=== PATIENT | female | born 1945 | race Caucasian/White ===

== ENCOUNTER 2016-12-10 02:16 | Emergency (ER) | payer MEDICAID ==
--- NOTE | ~2016-12-10 | ER ---
PATIENT'S NAME: DAVIAN JACQUES [facility] AGE: 71 Y [address] ROOM: [place] [address] LOCATION: [facility] ADMIT DATE: 12/10/2016 ER/Outpatient Report DISCHARGE DATE: 12/10/2016 FAMILY PHYSICIAN: PHYSICIAN, NO ATTENDING PHYSICIAN: Shea Wills Time of Arrival: 0216 hours. Time of Evaluation: 0229 hours. IDENTIFICATION: A 71-year-old female. CHIEF COMPLAINT: Abdominal pain. HISTORY OF PRESENT ILLNESS: The patient has had abdominal pain for 3 weeks, left lower quadrant cramping abdominal pain, intermittent in nature, improved with peppermints. Today, she has had this off and on. No diarrhea. She has occasional constipation. Last bowel movement was Wednesday, normal after prune juice. No blood. She has never had a colonoscopy. She had a T-max today of 99.5. She has had some nausea, no vomiting, no dysuria. She is incontinent of urine, but that is not new. She has had 9 children. Normal vaginal delivery. Currently, she is having no pain at all. It is 0216 hours in the morning and she has had this pain for 3 weeks. When I asked her what has changed or what is different today, she said really nothing. Apparently, her children talked to her into going to the doctor, so she thought she would come in here. She has been followed by the outpatient wound center and Dr. Solorzano for treatment evaluation of her right diabetic foot ulcer and she has had amputation of the right great and second toes per Dr. Solorzano, September 03, 2016, and had a wound VAC placed in September. PAST MEDICAL HISTORY: ALLERGIES: OLD RECORDS REFLECTED ALLERGIES OF CODEINE, SULFA, ALTACE, NUCYNTA, PENICILLIN, AND METFORMIN. CURRENT MEDICATIONS: 1. Amlodipine. 2. Aspirin. 3. Atorvastatin. 4. Humalog. 5. Florastor. 6. Tylenol. PATIENT'S NAME: DAVIAN JACQUES [facility] AGE: 71 Y [address] ROOM: [place] [address] LOCATION: ED ADMIT DATE: 12/10/2016 ER/Outpatient Report DISCHARGE DATE: 12/10/2016 FAMILY PHYSICIAN: PHYSICIAN, NO ATTENDING PHYSICIAN: Shea Wills 7. Benadryl. 8. Lantus. MEDICAL PROBLEMS: Diabetes, insulin requiring; morbid obesity; chronic mobility; coronary artery disease, status post previous stent; basal cell carcinoma requiring skin graft; hypertension; dyslipidemia; recurrent urinary tract infections; osteoarthritis; gastroesophageal reflux disease; venous insufficiency. PRIOR SURGERIES: Amputation of toes on the right foot, cholecystectomy, basal cell cancer excision, cardiac catheterization with stenting. FAMILY HISTORY: Mother, father, sister, and brother with heart disease. SOCIAL HISTORY: The patient is , lives in [place]. Tobacco use, denies. Alcohol use, denies. Drug use, denies. ROS: All systems reviewed are negative other than what is noted in the HPI. PHYSICAL EXAMINATION: VITAL SIGNS: Height 5 feet 6 inches, weight 101.1 kg, blood pressure 152/65, pulse 95, respirations 16, temperature 100.3, and saturations 94%. GENERAL: A 71-year-old female, in no acute distress. HEENT: Unremarkable. LUNGS: Clear to auscultation. HEART: Regular rate and rhythm. ABDOMEN: Soft, nondistended, and nontender. SKIN: [place], warm, and dry. NEURO: No focal deficit. EXTREMITIES: Cam boot and wound VAC to her right foot that was not removed. LABORATORY DATA: UA 10-20 white cells, negative red cells, 5-10 epithelial cells, few bacteria. Sodium 140, potassium 4.1, chloride 107, CO2 22, BUN 16, creatinine 0.9. Blood sugar 261. Liver enzymes are normal. Amylase 14, lipase 82, hemoglobin 12.1, hematocrit 38.9, platelets 239, white count 17.4 with 86% neutrophils. The patient is afebrile here. She is pain-free. She is sleeping comfortably. IMPRESSION: 1. Urinary tract infection. 2. Left lower quadrant pain. PATIENT'S NAME: DAVIAN JACQUES [facility] AGE: 71 Y [address] ROOM: [place], [place] [address] LOCATION: [facility] ADMIT DATE: 12/10/2016 ER/Outpatient Report DISCHARGE DATE: 12/10/2016 FAMILY PHYSICIAN: PHYSICIAN, NO ATTENDING PHYSICIAN: Shea Wills PLAN: When I asked the patient her allergies, she said that she could tolerate Cipro, that she has had it before. I prescribed Cipro 500 mg b.i.d. for 7 days. Rest and fluids and follow up with Dr. Solorzano as scheduled later today. Follow up with primary care physician in 1-2 days. She will need to be obtaining care from a new primary care physician. The patient understands and agrees, and all questions have been answered. After the patient left, some old records reflected that possibly she is allergic to Cipro. She has had Levaquin as recently as August. I will contact the patient to verify her allergies at [phone]. MD FIDEL CHRISTIANSON/herve /[id number] d: 12/10/1654 t: 12/12/16 0645, OUTPATIENT REPORT
[~2016-12-10 02:16] MED LIST: ASPIRIN325 MG PO; BENADRYL25 MG PO; CIPRO500 MG PO; DAKINS 0.25% (473 ML TOP; FLORASTOR250 MG PO; HUMALOG MI100 UNIT/5; HUMALOG100 UNIT/3 SUB-Q; KEFLEX500 MG; KEFLEX500 MG PO; LANTUS (IN100 UNIT/M SUB-Q; LIPITOR80 MG PO; NORVASC5 MG PO; ONE DAILY COMP1 EACH; OXYGEN M-15; TYLENOL325 MG PO; VITAMIN E400 UNI2 PO
[2016-12-10 02:59] LABS: BASOPHIL # 0.1 K/uL (0.0-0.2); BASOPHIL % 0.6 %; EOSINOPHIL # 0.2 K/uL (0.0-0.5); HEMATOCRIT 38.9 % (33.0-46.0); HEMOGLOBIN 12.1 g/dL (10.0-15.0); IMMATURE GRANULOCYTE # 0.1 K/uL (0.0-0.3); IMMATURE GRANULOCYTE % 0.4 %; LYMPHOCYTE # 1.1 K/uL (0.8-4.0); LYMPHOCYTE % 6.5 %; MCH 27.8 pg (27.0-34.0); MCHC 31.1 gm/dL (32.0-36.5); MCV 89.4 fl (83.0-98.0); MONOCYTE % 5.5 %; MPV 11.7 fl (9.4-12.4); NEUTROPHIL # (ANC) 14.9 K/uL (1.8-7.8); NRBC % 0 /100WBC (0-0.00); PLATELET COUNT 239 K/uL (150-450); RBC 4.35 M/uL (3.50-5.50); RDW-CV 13.9 % (11.9-14.6)
[2016-12-10 03:02] LABS: WBC 17.4 K/uL (4.0-11.0)
[2016-12-10 03:18] LABS: ALBUMIN 2.8 gm/dL (3.5-5.0); ALK PHOS 168 IU/L (33-138); ALT 31 IU/L (12-78); BLOOD UREA NITROGEN 16 mg/dL (6-24); CALCIUM 8.3 mg/dL (8.5-10.5); CHLORIDE 107 mMol/L (96-110); CO2 22 mMol/L (22-32); CREATININE 0.9 mg/dL (0.5-1.1); ESTIMATED GFR (MDRD EQUATION) > 60; SODIUM 140 mMol/L (135-145); TOTAL PROTEIN 7.5 g/dL (6.0-8.4)
[2016-12-10 03:19] LABS: BILIRUBIN URINE NEGATIVE (NEGATIVE); BLOOD URINE NEGATIVE /UL (NEGATIVE); COLOR URINE YELLOW (YELLOW); GLUCOSE URINE 100 mg/dL (NEGATIVE); KETONE URINE NEGATIVE (NEGATIVE); LEUKOCYTES URINE 100 /UL (NEGATIVE); NITRITE URINE NEGATIVE (NEGATIVE); PH URINE 6.5 (4.0-8.0); PROTEIN URINE 15 mg/dL (NEGATIVE); TURBIDITY URINE CLEAR (CLEAR); UROBILINOGEN URINE NORMAL (NORMAL)
[2016-12-10 03:20] LABS: ANION GAP 15.1 (10.0-19.0); AST 32 IU/L (10-40); POTASSIUM 4.1 mMol/L (3.7-5.1); TOTAL BILIRUBIN 0.3 mg/dL (0.0-1.5)
[2016-12-10 03:37] LABS: BACTERIA URINE FEW (NEGATIVE); RBC URINE NEGATIVE #/HPF (NEGATIVE); YEAST URINE MODERATE (NEGATIVE)
[2016-12-10] MEDS ORDERED: CIPRO250 MG (11:58)
== END 2016-12-10 04:01 | disposition disaster alternative care site (69) ==
LOC: GMED 02:16
PROVIDERS: Family Medicine
PROC: 0T9B70Z Drainage of Bladder with Drainage Device, Via Natural or Artificial Opening (ICD-10-PCS; principal; 2016-12-10)
DX: N39.0 Urinary tract infection, site not specified (principal); E11.9 Type 2 diabetes mellitus without complications; K21.9 Gastro-esophageal reflux disease without esophagitis; E78.5 Hyperlipidemia, unspecified; I10 Essential (primary) hypertension; M19.90 Unspecified osteoarthritis, unspecified site; Z79.82 Long term (current) use of aspirin; Z88.0 Allergy status to penicillin; Z88.2 Allergy status to sulfonamides; Z88.8 Allergy status to other drugs, medicaments and biological substances; Z79.84 Long term (current) use of oral hypoglycemic drugs; Z79.4 Long term (current) use of insulin

== ENCOUNTER 2017-01-03 08:43 | Emergency (ER) | payer MEDICAID ==
--- NOTE | ~2017-01-03 | ER ---
PATIENT'S NAME: DAVIAN JACQUES [facility] AGE: 71 Y [address] ROOM: [place] [address] LOCATION: [facility] ADMIT DATE: 01/03/2017 ER/Outpatient Report DISCHARGE DATE: 01/03/2017 FAMILY PHYSICIAN: Physician, Unknown ATTENDING PHYSICIAN: Torres Yi CHIEF COMPLAINT: Fall, head injury, and pain. HISTORY OF PRESENT ILLNESS: According to the patient's family member, the patient had fallen earlier today, assuming to be around 5:00 a.m. She has been having significant decrease in her activity and has been making less sense since then. They were concerned about swelling of the brain and decided to bring her in for evaluation. The patient notes that she has pain everywhere including her chest, her back, and her knees in addition to her head. It is unclear if she lost consciousness and it sounds as though she may have slid out of bed that caused her fall. No clear description of the incident can be obtained based on my interview of the patient and family. The patient does have a marked history including cardiac disease with multiple stents. She also recently had some toes amputated secondary to diabetic complications. She does take multiple medications. PAST MEDICAL HISTORY: Documented on the record and reviewed by me. SOCIAL HISTORY: Documented on the record and reviewed by me. MEDICATIONS: Documented on the record and reviewed by me. ALLERGIES: DOCUMENTED ON THE RECORD AND REVIEWED BY ME. REVIEW OF SYSTEMS: All systems reviewed and negative except as noted in the HPI. PHYSICAL EXAMINATION: VITAL SIGNS: Blood pressure is 182/102, pulse 96, respiratory rate is 18, temperature is 97.8, SpO2 is 98% on room air. GENERAL: An age appropriate female, in obvious pain. No respiratory distress. Sitting upright on the exam table, clinging to her . The patient has a disheveled appearance and a marked odor emanating from her person. PATIENT'S NAME: DAVIAN JACQUES [facility] AGE: 71 Y [address] ROOM: [place] [address] LOCATION: [facility] ADMIT DATE: 01/03/2017 ER/Outpatient Report DISCHARGE DATE: 01/03/2017 FAMILY PHYSICIAN: Physician, Unknown ATTENDING PHYSICIAN: Torres Yi NEURO: The patient is awake, she is disoriented. She is speaking in clear S[place], but does not make sense. She does answer questions intermittently for me. She is requesting to go and ask that her not leave her. PSYCH: The family notes she has been under significant emotional distress after the of a pet a few days ago. HEENT: Grossly normocephalic and atraumatic. No obvious hematomas or skull defects. Eyes are injected slightly. PERRL. Conjunctivae moist. Oropharynx is notable for poor dentition. NECK: Supple. Trachea is midline. CHEST: Tenderness on the upper sternum. HEART: Regular rate and rhythm with no murmurs. Borderline tachycardic. LUNGS: Grossly clear to auscultation bilateral. ABDOMEN: Soft, nontender, and nondistended. No rebound or guarding. BACK: Nontender to palpation. No CVA tenderness. EXTREMITIES: Notable for tenderness at the bilateral knees. No other obvious abnormalities. SKIN: Warm, dry, and intact. LABS AND X-RAYS: None. IMPRESSION: Fall with headache, confusion, chest pain, and knee pain. EMERGENCY DEPARTMENT COURSE: The patient was seen and evaluated as above. Evidently, family took issue with the initial nurse for unclear reasons. I did evaluate the patient and based on her presentation I am recommending evaluation with CT EKG blood work and x-rays of the chest and knees. I was informed by the family that they would not be pursuing that as the patient had requested to leave. I explained that any further vomiting would be indication for absolute evaluation by head CT. The family expressed their understanding and stated that they would return or go to another emergency department, if the patient worsen. They are stating that they are following the patient's wishes to not be here at this time. All questions were answered to the best of my ability. The patient was discharged in an unchanged condition. MD AIDAN OCHOA/herve PATIENT'S NAME: DAVIAN JACQUES [facility] AGE: 71 Y [address] ROOM: [place] [address] LOCATION: [facility] ADMIT DATE: 01/03/2017 ER/Outpatient Report DISCHARGE DATE: 01/03/2017 FAMILY PHYSICIAN: Physician, Sadiq ATTENDING PHYSICIAN: Torres Yi /[id number] d: 01/03/170 t: 01/20/17 0854, OUTPATIENT REPORT
[~2017-01-03 08:43] MED LIST changes: +CIPRO250 MG
== END 2017-01-03 09:10 | disposition disaster alternative care site (69) ==
LOC: GACC 08:43
DX: R51 Headache (principal); R41.0 Disorientation, unspecified; R07.9 Chest pain, unspecified; M25.562 Pain in left knee; M25.561 Pain in right knee; W19.XXXA Unspecified fall, initial encounter

== ENCOUNTER 2017-01-03 11:46 | Emergency (ER) | payer MEDICAID ==
--- NOTE | ~2017-01-03 | ER ---
PATIENT'S NAME: DAVIAN JACQUES [facility] AGE: 71 Y [address] ROOM: [place] [address] LOCATION: [facility] ADMIT DATE: 01/03/2017 ER/Outpatient Report DISCHARGE DATE: 01/03/2017 FAMILY PHYSICIAN: PHYSICIAN, NO ATTENDING PHYSICIAN: Torres Yi CHIEF COMPLAINT: Fall with confusion. HISTORY OF PRESENT ILLNESS: The patient was seen and evaluated earlier in our emergency department and left prior to any interventions or evaluation other than physical exam. She returned after vomiting about a 1/2 hour after leaving. She also had persistent pain and family talked her into evaluation. She supposedly fell around 5:00 a.m., unknown loss of consciousness, with diffuse pain. She is much more calm now. Please see dictation from encounter earlier today for further details. PAST MEDICAL HISTORY: Documented on the record and reviewed by me. SOCIAL HISTORY: Documented on the record and reviewed by me. MEDICATIONS: Documented on the record and reviewed by me. ALLERGIES: DOCUMENTED ON THE RECORD AND REVIEWED BY ME. REVIEW OF SYSTEMS: All systems were reviewed and negative except as noted in the HPI. PHYSICAL EXAMINATION: VITAL SIGNS: Blood pressure is 231/105, pulse is 107, respiratory rate is 20, and SpO2 is 94% on room air. GENERAL: Age-appropriate female, in mild pain, recumbent on the exam table, conversant and appropriate with no respiratory distress. NEUROLOGIC: The patient is confused, but she is able to talk in clear sentences. GCS is 14. No obvious asymmetry on exam. HEENT: Grossly normocephalic. There is some fullness posteriorly with a hematoma. No bleeding. The eyes are PERRL. Oropharynx is clear. NECK: Supple. Trachea is midline. CHEST: Heart has regular rate and rhythm, tachycardic. No murmurs. PATIENT'S NAME: DAVIAN JACQUES [facility] AGE: 71 Y [address] ROOM: [place], [place] [address] LOCATION: [facility] ADMIT DATE: 01/03/2017 ER/Outpatient Report DISCHARGE DATE: 01/03/2017 FAMILY PHYSICIAN: PHYSICIAN, NO ATTENDING PHYSICIAN: Torres Yi LUNGS: Clear to auscultation bilateral grossly. No rhonchi, wheezes, or rales. ABDOMEN: Obese, nontender. No obvious abnormalities. BACK: Grossly normal to inspection and palpation. EXTREMITIES: Notable for amputation of the right 1st and 2nd digits. There is diffuse peripheral edema. No obvious abnormalities. SKIN: Generally unremarkable and warm and dry. LABORATORY DATA AND X-RAYS: Head CT and C-spine CT without significant acute abnormalities. There are multiple pulmonary nodules, which the family was aware of, that appear to have progressed somewhat Chest x-ray, grossly unremarkable per my read. EKG: Sinus tach, first-degree heart block, otherwise normal intervals, left axis. No signs of dysrhythmia or acute ischemia. Urinalysis with no leukocytes, no nitrites, 10 blood, procalcitonin is below threshold. CMS without significant abnormality of electrolytes, alkaline phosphatase of 151, no elevation of renal function or transaminases. Troponin is below threshold. CRP is 0.59. WBC is 12.4, hemoglobin 12.8, platelets of 255. INR is 1.0. Urine micro without significant abnormalities other than some rbc's and many yeast. Lactate is 1.9. IMPRESSION: 1. Fall. 2. Incidental pulmonary nodules. 3. Persistent confusion, likely concussion. EMERGENCY DEPARTMENT COURSE: The patient was seen and evaluated as above. There was no obvious injury at this time. Based on her skin exam, I believe the yeast in the urine are contaminants. Cultures are not indicated. She was able to sleep for a time in the emergency department. Her blood pressures improved markedly. She remained confused, but was improving. I discussed at length with the family the risks and benefits of close observation at home versus observation in the hospital. At this time, I believe it is reasonable to observe at home. She should return immediately if there are any significant worsening or changes. Because she has not slept significantly over the last 4 days secondary to stress, I believe that having some good sleep would be beneficial for her. The family will have her stay with one of her daughters who live 2 blocks from the hospital and will keep a close eye on her here and return immediately if there are any concerns. PATIENT'S NAME: DAVIAN JACQUES [facility] AGE: 71 Y [address] ROOM: [place] [address] LOCATION: [facility] ADMIT DATE: 01/03/2017 ER/Outpatient Report DISCHARGE DATE: 01/03/2017 FAMILY PHYSICIAN: PHYSICIAN, NO ATTENDING PHYSICIAN: Torres Yi MD AIDAN OCHOA/herve /[id number] d: 01/03/17 2336 t: 01/20/17 0854, OUTPATIENT REPORT
[2017-01-03 12:43] LABS: BILIRUBIN URINE NEGATIVE (NEGATIVE); BLOOD URINE 10 /UL (NEGATIVE); COLOR URINE COLORLESS (YELLOW); GLUCOSE URINE 1000 mg/dL (NEGATIVE); KETONE URINE NEGATIVE (NEGATIVE); LEUKOCYTES URINE NEGATIVE /UL (NEGATIVE); NITRITE URINE NEGATIVE (NEGATIVE); PROTEIN URINE 30 mg/dL (NEGATIVE); TURBIDITY URINE CLEAR (CLEAR); UROBILINOGEN URINE NORMAL (NORMAL)
[2017-01-03 12:51] LABS: BACTERIA URINE RARE (NEGATIVE); EPITHELIAL URINE NEGATIVE #/HPF (NEGATIVE); WBC URINE RARE #/HPF (NEGATIVE); YEAST URINE MANY (NEGATIVE)
[2017-01-03 12:57] LABS: BASOPHIL # 0.1 K/uL (0.0-0.2); BASOPHIL % 0.6 %; EOSINOPHIL % 0.3 %; HEMATOCRIT 39.9 % (33.0-46.0); HEMOGLOBIN 12.8 g/dL (10.0-15.0); IMMATURE GRANULOCYTE # 0.1 K/uL (0.0-0.3); IMMATURE GRANULOCYTE % 0.5 %; LYMPHOCYTE # 1.2 K/uL (0.8-4.0); LYMPHOCYTE % 9.4 %; MCH 27.8 pg (27.0-34.0); MCHC 32.1 gm/dL (32.0-36.5); MCV 86.7 fl (83.0-98.0); MONOCYTE # 0.3 K/uL (0.0-1.0); MONOCYTE % 2.5 %; MPV 11.5 fl (9.4-12.4); NEUTROPHIL # (ANC) 10.7 K/uL (1.8-7.8); NEUTROPHIL % 86.7 %; NRBC % 0 /100WBC (0-0.00); PLATELET COUNT 255 K/uL (150-450); RDW-CV 13.3 % (11.9-14.6); WBC 12.4 K/uL (4.0-11.0)
[2017-01-03 13:05] LABS: INR - (THERAPEUTIC) 1.01 (0.92-1.07); PROTIME 10.6 SECONDS (9.8-11.4); PTT 24 SECONDS (25-32)
[2017-01-03 13:17] LABS: ALBUMIN 3.3 gm/dL (3.5-5.0); ALK PHOS 151 IU/L (33-138); ALT 21 IU/L (12-78); ANION GAP 12.3 (10.0-19.0); AST 14 IU/L (10-40); BLOOD UREA NITROGEN 17 mg/dL (6-24); CALCIUM 8.5 mg/dL (8.5-10.5); CHLORIDE 103 mMol/L (96-110); CO2 25 mMol/L (22-32); CREATININE 0.9 mg/dL (0.5-1.1); ESTIMATED GFR (MDRD EQUATION) > 60; POTASSIUM 4.3 mMol/L (3.7-5.1); SODIUM 136 mMol/L (135-145); TOTAL BILIRUBIN 0.3 mg/dL (0.0-1.5); TOTAL PROTEIN 8.2 g/dL (6.0-8.4)
== END 2017-01-03 15:27 | disposition disaster alternative care site (69) ==
LOC: GACC 11:46
PROVIDERS: Emergency Medicine
PROC: 0T9B70Z Drainage of Bladder with Drainage Device, Via Natural or Artificial Opening (ICD-10-PCS; principal; 2017-01-03)
DX: R41.0 Disorientation, unspecified (principal); R91.8 Other nonspecific abnormal finding of lung field; W19.XXXA Unspecified fall, initial encounter

== ENCOUNTER 2017-01-17 05:06 | Emergency (ER) | payer MEDICAID ==
--- NOTE | ~2017-01-17 | ER ---
PATIENT'S NAME: PARK MONTIEL [facility] AGE: 71 Y [address] ROOM: [place] [address] LOCATION: [facility] ADMIT DATE: 01/17/2017 ER/Outpatient Report DISCHARGE DATE: 01/17/2017 FAMILY PHYSICIAN: PHYSICIAN, NO ATTENDING PHYSICIAN: Rich Somers HISTORY OF PRESENT ILLNESS: Park Montiel is a 71-year-old female who was evaluated by Dr. Somers, refer to his dictation please. At 6 a.m. shift change, I did assume care. The patient has lower abdominal pain, more to the left side, that she has had for 3 months. Right now, her pain is minimal. She has had some nausea. No vomiting. Her last bowel movement was 2 days ago. She has intermittent constipation and diarrhea. No fever or chills. She was seen here for abdominal pain on December 10 that she had off and on for 3 weeks, left lower quadrant cramping pain at that time. At that time, she said she had never had a colonoscopy, and her pain on that examination was resolved, unremarkable. After discussion at that visit, she did elect to hold on the CAT scan and was going to establish care and follow up with her primary care physician. She has not done that as of yet. I also did review further back on her records, and she was seen in the emergency room on June 03 with low abdominal pain, had a CT of the abdomen showing some endometrial thickening suspicious for mass and some pulmonary nodules. She had a CT in 2014 with a similar presentation, but apparently did not follow up for pelvic ultrasound as recommended. She did undergo pelvic ultrasound in June 2016 showing thickened endometrium with fluid in the endometrial canal. Underlying neoplasm cannot be excluded. She states that she did talk with [facility] at that time, and a hysterectomy was recommended, but she did not want to proceed as she was concerned about possible complications. She was seen somewhere in [place] by [facility], but it sounds like she also may have gone to [facility] here, but the family is not really certain as to what the recommendations were at that time. PAST MEDICAL HISTORY: ALLERGIES: MULTIPLE ALLERGIES TO INCLUDE CODEINE, SULFA, ALTACE, NUCYNTA, PENICILLIN, METFORMIN, NITROGLYCERIN, BIGUANIDE, BACITRACIN, CIPRO, HYDROCODONE, NEOMYCIN, POLYMYXIN, RAMIPRIL, BACTRIM, TRAMADOL, DEXTROMETHORPHAN, FERROUS GLUCONATE, FOLIC ACID, HEPARIN, GLUTEN, LYCOPENE, VITAMINS WITH CALCIUM, AND IRON. CURRENT MEDICATIONS: 1. Amlodipine 10 mg daily. 2. Aspirin 325 mg daily. 3. Atorvastatin 40 mg at bedtime. 4. Humalog sliding scale. PATIENT'S NAME: PARK MONTIEL [facility] AGE: 71 Y [address] ROOM: [place] [address] LOCATION: [facility] ADMIT DATE: 01/17/2017 ER/Outpatient Report DISCHARGE DATE: 01/17/2017 FAMILY PHYSICIAN: PHYSICIAN, NO ATTENDING PHYSICIAN: Rich Somers 5. Florastor 250 mg b.i.d. 6. Tylenol 650 p.r.n. 7. Benadryl p.r.n. 8. Lantus 25 units subcu at bedtime. MEDICAL PROBLEMS: Hypertension; hyperlipidemia; diabetes mellitus, type 2; obesity; arthritis; coronary artery disease, with previous stent; basal cell carcinoma of the skin requiring graft; hypertension; recurrent UTIs; gastroesophageal reflux disease; and venous insufficiency. PRIOR SURGERIES: Amputation of toes on the right foot, cholecystectomy, basal cell cancer excision, and cardiac catheterization with stenting. FAMILY HISTORY: Positive for heart disease. SOCIAL HISTORY: The patient is and lives in [place]. She has 8 children. Tobacco use: Denies. Alcohol use: Denies. Drug use: Denies. REVIEW OF SYSTEMS: All systems reviewed and negative other than what is noted in the HPI. PHYSICAL EXAMINATION: VITAL SIGNS: Weight 98.2 kg, blood pressure 145/71, pulse 73, respirations 14, temperature 97.1, and saturation is 99% on room air. GENERAL: A 71-year-old female in no acute distress. HEENT: Head: Normocephalic atraumatic. Ears: TMs translucent, both ears. Nose: Mucosa pink, no lesions. Mouth: No lesions. Pharynx: Benign. NECK: Supple. No lymphadenopathy. LUNGS: Clear to auscultation. HEART: Regular rate and rhythm. ABDOMEN: Protuberant. Bowel sounds present. Soft and nondistended. Tender to palpation in the low abdomen. No rebound or guarding. SKIN: [place], warm, and dry. No lesions or rashes noted. NEUROLOGIC: No focal deficit. LABORATORY DATA: UA: Full field of white cells. Culture is pending. White count 12.1 with a normal differential. Sodium 142, potassium 4.0, chloride 109, CO2 of 22, BUN 27, creatinine 0.8, and blood sugar 258. Liver enzymes normal. Lipase 123. CT scan with IV contrast of her abdomen and pelvis per Dr. Johnston reveals a uterine mass with probable local metastasis. PATIENT'S NAME: PARK MONTIEL [facility] AGE: 71 Y [address] ROOM: [place] [address] LOCATION: [facility] ADMIT DATE: 01/17/2017 ER/Outpatient Report DISCHARGE DATE: 01/17/2017 FAMILY PHYSICIAN: PHYSICIAN, NO ATTENDING PHYSICIAN: Rich Somers ASSESSMENT: 1. Uterine mass. 2. Urinary tract infection. PLAN: Follow up at [facility] tomorrow. I did discuss this with Dr. Billings. Await urine culture results. Establish care with primary care physician. MiraLAX 17 g daily for constipation. The patient and her family understand and agree, and all questions have been answered. MD FIDEL CHRISTIANSON/herve /[id number] d: 01/17/17 1406 t: 01/20/17 0640, OUTPATIENT REPORT
--- NOTE | ~2017-01-17 | ER ---
PATIENT'S NAME: DAVIAN JACQUES [facility] AGE: 71 Y [address] ROOM: [place] [address] LOCATION: [facility] ADMIT DATE: 01/17/2017 ER/Outpatient Report DISCHARGE DATE: 01/17/2017 FAMILY PHYSICIAN: PHYSICIAN, NO ATTENDING PHYSICIAN: Sekou Szymanski Time of arrival: 0520 hours. Time of evaluation: 0530 hours. CHIEF COMPLAINT: This is a 71-year-old female with multiple medical problems. She is in with complaint of a 3-month history of left lower abdominal pain. HISTORY OF PRESENT ILLNESS: She reports that she has had pain in her left lower abdomen for the past 3 months. She states it is a dull aching pain that waxes and wanes. At times, it is quite severe. She states that she had a more severe episode this morning. She has been nauseated, but no vomiting. She had loose bowel movement 2 days ago. She denies any constipation. PAST MEDICAL HISTORY: Significant for: 1. Insulin-dependent diabetes. 2. Hypertension. 3. Hypercholesterolemia. 4. Severe peripheral vascular disease. 5. Coronary artery disease. CURRENT MEDICATIONS: See list. REVIEW OF SYSTEMS: She denies any recent illnesses. SOCIAL HISTORY: She is a nonsmoker. PHYSICAL EXAMINATION: GENERAL: Alert, overweight female, badly in need of the bath in no acute distress. SKIN: Warm and dry. Color was pale. HEAD, EARS, EYES, NOSE, AND THROAT: Normal. NECK: Supple. HEART: Regular rate and rhythm without murmur. LUNGS: Clear. Breath sounds are equal. PATIENT'S NAME: DAVIAN JACQUES [facility] AGE: 71 Y [address] ROOM: [place] [address] LOCATION: [facility] ADMIT DATE: 01/17/2017 ER/Outpatient Report DISCHARGE DATE: 01/17/2017 FAMILY PHYSICIAN: PHYSICIAN, NO ATTENDING PHYSICIAN: Sekou Szymanski ABDOMEN: Soft. Slightly distended. Moderate diffuse tenderness and several areas of fullness, but no discrete masses. EXTREMITIES: Normal. NEUROLOGIC: Normal. LABORATORY DATA: CBC: Comprehensive metabolic profile is pending. CT of the abdomen and pelvis is pending. PLAN: Care is transferred to Dr. Barriga at 0600 hours at shift change. SEKOU SZYMANSKI MD JDB/modl /[id number] d: 01/17/17 1205 t: 02/21/17 0453, OUTPATIENT REPORT
--- NOTE | ~2017-01-17 | ER ---
PATIENT'S NAME: DAVIAN JACQUES [facility] AGE: 71 Y [address] ROOM: [place] [address] LOCATION: [facility] ADMIT DATE: 01/17/2017 ER/Outpatient Report DISCHARGE DATE: 01/17/2017 FAMILY PHYSICIAN: PHYSICIAN, NO ATTENDING PHYSICIAN: Sekou Szymanski Time of arrival: 0520 hours. Time of evaluation: 0530 hours. CHIEF COMPLAINT: This is a 71-year-old female with multiple medical problems. She is in with complaint of a 3-month history of left lower abdominal pain. HISTORY OF PRESENT ILLNESS: She reports that she has had pain in her left lower abdomen for the past 3 months. She states it is a dull aching pain that waxes and wanes. At times, it is quite severe. She states that she had a more severe episode this morning. She has been nauseated, but no vomiting. She had loose bowel movement 2 days ago. She denies any constipation. PAST MEDICAL HISTORY: Significant for: 1. Insulin-dependent diabetes. 2. Hypertension. 3. Hypercholesterolemia. 4. Severe peripheral vascular disease. 5. Coronary artery disease. CURRENT MEDICATIONS: See list. REVIEW OF SYSTEMS: She denies any recent illnesses. SOCIAL HISTORY: She is a nonsmoker. PHYSICAL EXAMINATION: GENERAL: Alert, overweight female, badly in need of the bath in no acute distress. SKIN: Warm and dry. Color was pale. HEAD, EARS, EYES, NOSE, AND THROAT: Normal. NECK: Supple. HEART: Regular rate and rhythm without murmur. LUNGS: Clear. Breath sounds are equal. PATIENT'S NAME: DAVIAN JACQUES [facility] AGE: 71 Y [address] ROOM: [place] [address] LOCATION: [facility] ADMIT DATE: 01/17/2017 ER/Outpatient Report DISCHARGE DATE: 01/17/2017 FAMILY PHYSICIAN: PHYSICIAN, NO ATTENDING PHYSICIAN: Sekou Szymanski ABDOMEN: Soft. Slightly distended. Moderate diffuse tenderness and several areas of fullness, but no discrete masses. EXTREMITIES: Normal. NEUROLOGIC: Normal. LABORATORY DATA: CBC: Comprehensive metabolic profile is pending. CT of the abdomen and pelvis is pending. PLAN: Care is transferred to Dr. Barriga at 0600 hours at shift change. SEKOU SZYMANSKI MD JDB/modl /[id number] d: t: 01/17/17 1229, OUTPATIENT REPORT
[2017-01-17 06:55] LABS: BILIRUBIN URINE NEGATIVE (NEGATIVE); BLOOD URINE 10 /UL (NEGATIVE); COLOR URINE YELLOW (YELLOW); GLUCOSE URINE 50 mg/dL (NEGATIVE); KETONE URINE NEGATIVE (NEGATIVE); LEUKOCYTES URINE 500 /UL (NEGATIVE); NITRITE URINE NEGATIVE (NEGATIVE); PROTEIN URINE NEGATIVE (NEGATIVE); SPEC GRAVITY URINE 1.015 (1.003-1.035); UROBILINOGEN URINE NORMAL (NORMAL)
[2017-01-17 06:58] LABS: TURBIDITY URINE 1+ (CLEAR)
[2017-01-17 06:59] LABS: BASOPHIL # 0.1 K/uL (0.0-0.2); BASOPHIL % 0.7 %; EOSINOPHIL # 0.4 K/uL (0.0-0.5); EOSINOPHIL % 3.1 %; HEMATOCRIT 37.9 % (33.0-46.0); HEMOGLOBIN 12.4 g/dL (10.0-15.0); IMMATURE GRANULOCYTE # 0.1 K/uL (0.0-0.3); IMMATURE GRANULOCYTE % 0.6 %; LYMPHOCYTE # 1.9 K/uL (0.8-4.0); LYMPHOCYTE % 15.6 %; MCH 28.4 pg (27.0-34.0); MCHC 32.7 gm/dL (32.0-36.5); MCV 86.9 fl (83.0-98.0); MONOCYTE # 0.8 K/uL (0.0-1.0); MONOCYTE % 6.3 %; MPV 10.9 fl (9.4-12.4); NEUTROPHIL # (ANC) 8.9 K/uL (1.8-7.8); NEUTROPHIL % 73.7 %; NRBC % 0 /100WBC (0-0.00); PLATELET COUNT 274 K/uL (150-450); RBC 4.36 M/uL (3.50-5.50); RDW-CV 13.4 % (11.9-14.6); WBC 12.1 K/uL (4.0-11.0)
[2017-01-17 07:05] LABS: AMORPHOUS URINE 1+ (NEGATIVE); BACTERIA URINE NEGATIVE (NEGATIVE); EPITHELIAL URINE 20-50 #/HPF (NEGATIVE); MUCUS URINE 2+ (NEGATIVE); WBC URINE FULL FIELD #/HPF (NEGATIVE); YEAST URINE MODERATE (NEGATIVE)
[2017-01-17 07:15] LABS: ALK PHOS 157 IU/L (33-138); ALT 25 IU/L (12-78); AST 16 IU/L (10-40); BLOOD UREA NITROGEN 27 mg/dL (6-24); CALCIUM 8.6 mg/dL (8.5-10.5); CHLORIDE 109 mMol/L (96-110); CO2 22 mMol/L (22-32); CREATININE 0.8 mg/dL (0.5-1.1); ESTIMATED GFR (MDRD EQUATION) > 60; SODIUM 142 mMol/L (135-145); TOTAL PROTEIN 7.7 g/dL (6.0-8.4)
[2017-01-17 07:17] LABS: TOTAL BILIRUBIN 0.2 mg/dL (0.0-1.5)
== END 2017-01-17 09:05 | disposition disaster alternative care site (69) ==
LOC: GMED 05:06
PROVIDERS: Emergency Medicine
DX: N39.0 Urinary tract infection, site not specified (principal); N85.8 Other specified noninflammatory disorders of uterus; I25.10 Atherosclerotic heart disease of native coronary artery without angina pectoris; E11.9 Type 2 diabetes mellitus without complications; K21.9 Gastro-esophageal reflux disease without esophagitis; I10 Essential (primary) hypertension; E66.9 Obesity, unspecified; E78.00 Pure hypercholesterolemia, unspecified; Z86.79 Personal history of other diseases of the circulatory system; Z88.2 Allergy status to sulfonamides; Z88.5 Allergy status to narcotic agent; Z88.0 Allergy status to penicillin; Z88.8 Allergy status to other drugs, medicaments and biological substances; Z79.899 Other long term (current) drug therapy; Z79.82 Long term (current) use of aspirin; Z79.4 Long term (current) use of insulin; Z89.421 Acquired absence of other right toe(s); Z90.49 Acquired absence of other specified parts of digestive tract; Z95.5 Presence of coronary angioplasty implant and graft; Z85.9 Personal history of malignant neoplasm, unspecified

== ENCOUNTER → 2017-03-17 | Outpatient (CLI) | payer MEDICAID | END | disposition disaster alternative care site (69) | LOC: GRAD 02-25 08:00 | DX: T81.89XA Other complications of procedures, not elsewhere classified, initial encounter (principal); L97.519 Non-pressure chronic ulcer of other part of right foot with unspecified severity; Z89.421 Acquired absence of other right toe(s) ==